=== PATIENT | female | born 1945 | race Caucasian/White ===

== ENCOUNTER 2017-10-19 14:21 | Emergency (ER) | payer OTHER ==
[~2017-10-19] VITALS: Ht 160 cm; Wt 69.6 kg
[2017-10-19 14:26] VITALS: TEMP 36.7; Ht 160 cm; Wt 69.6 kg
--- NOTE | 2017-10-19 15:17 | EMERGENCY ROOM VISIT NOTE ---
History First contact with patient: 15:09 Chief Complaint: ABDOMINAL PAIN Stated Complaint: PRESSURE IN CHEST - GAS Nursing Triage Summary: pt reports upper abd pain , lots of gas , took zantac yesterday and this am helping with gas has lots of pressure pain radiates around to back. denies any d/c/n/v History of Present Illness The patient is a 72 year old female who presents to the Emergency Room with complaints of chest pressure below the breast bone. She did go to acute care this morning and was directed here for further eval. The symptoms started 1 month ago (thought maybe she pulled a muscle when she was shovelling). This has gotten progressively worse. Denies chest pain or shortness of breath. She reports that her chest pressure radiates to the back as well. The pressure is somewhat constant but varies in intensity. 2/10 at its worse. She normally does sit ups and recently it has been more uncomfortable to do the exercises. She took zantac last night and this morning that she thought helped her symptoms. She does have a bloating sensation. 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 Review of Systems See above for pertinent positives & negatives. A total of 10 systems reviewed and were otherwise negative. Past Medical/Surgical History Medical Problems: (1) Arthritis of left knee Family History Patient reports no known family medical history. Social History Smoking Status: Never Smoker Alcohol Use: none Drug Use: none Marital Status: single Housing Status: lives alone Occupation Status: retired Current/Historical Medications Scheduled Omeprazole (Prilosec), 20 MG PO DAILY Ranitidine Hcl (Zantac 150 Maximum Streng), 1 TAB PO BID Scheduled PRN Ranitidine (Zantac), 1 TAB PO DAILY PRN for ACID REFLUX Physical Exam Vital Signs Date Time Temp Pulse Resp B/P (MAP) Pulse Ox O2 Delivery O2 Flow Rate FiO2 10/19/17 17:39 73 22 143/76 97 10/19/17 17:01 143/76 10/19/17 17:00 70 15 97 Room Air 10/19/17 16:32 67 10/19/17 16:31 132/59 10/19/17 16:30 68 13 97 Room Air 10/19/17 16:01 136/72 10/19/17 16:00 86 15 10/19/17 15:58 69 12 136/72 98 Room Air 10/19/17 14:26 36.7 83 18 162/82 99 Room Air Physical Exam GENERAL: Patient is awake alert in no acute distress patient is resting comfortably and showing no signs of anxiety EYES: The conjunctivae are clear. The pupils are round and reactive. EARS, NOSE, MOUTH AND THROAT: The nose is without any evidence of any deformity. Mucous membranes are moist tongue is midline NECK: The neck is nontender and supple. RESPIRATORY: Normal respiratory effort is noted there is no evidence of wheezing rhonchi or rales CARDIOVASCULAR: Regular rate and rhythm noted there no murmurs rubs or gallops normal S1 normal S2. No chest wall tenderness GASTROINTESTINAL: The abdomen is soft. Bowel sounds are present in all quadrants. Abdomen is nontender BACK: No midline tenderness. normal ROM. No CVA tenderness. MUSCULOSKELETAL/EXTREMITIES: There is no evidence of gross deformity full range of motion is noted in the hips and shoulders SKIN: There is no obvious evidence of any rash. There are no petechiae, pallor or cyanosis noted. NEUROLOGIC: Patient is awake alert and oriented x3 Medical Decision & Procedures Laboratory Results 10/19/17 15:58 Red Blood Count 4.79, Mean Corpuscular Volume 86.0, Mean Corpuscular Hemoglobin 28.6, Mean Corpuscular Hemoglobin Concent 33.3, Mean Platelet Volume 10.2, Neutrophils (%) (Auto) 60.3, Lymphocytes (%) (Auto) 29.2, Monocytes (%) (Auto) 7.5, Eosinophils (%) (Auto) 1.9, Basophils (%) (Auto) 0.9, Neutrophils # (Auto) 3.53, Lymphocytes # (Auto) 1.71, Monocytes # (Auto) 0.44, Eosinophils # (Auto) 0.11, Basophils # (Auto) 0.05 10/19/17 15:58 Test 10/19/17 15:58 White Blood Count 5.85 K/uL (4.8-10.8) Red Blood Count 4.79 M/uL (4.2-5.4) Hemoglobin 13.7 g/dL (12.0-16.0) Hematocrit 41.2 % (37-47) Mean Corpuscular Volume 86.0 fL (80-100) Mean Corpuscular Hemoglobin 28.6 pg (25-34) Mean Corpuscular Hemoglobin Concent 33.3 g/dl (32-36) Platelet Count 242 K/uL (130-400) Mean Platelet Volume 10.2 fL (7.4-10.4) Neutrophils (%) (Auto) 60.3 % Lymphocytes (%) (Auto) 29.2 % Monocytes (%) (Auto) 7.5 % Eosinophils (%) (Auto) 1.9 % Basophils (%) (Auto) 0.9 % Neutrophils # (Auto) 3.53 K/uL (1.4-6.5) Lymphocytes # (Auto) 1.71 K/uL (1.2-3.4) Monocytes # (Auto) 0.44 K/uL (0.11-0.59) Eosinophils # (Auto) 0.11 K/uL (0-0.5) Basophils # (Auto) 0.05 K/uL (0-0.2) RDW Standard Deviation 44.5 fL (36.4-46.3) RDW Coefficient of Variation 14.1 % (11.5-14.5) Immature Granulocyte % (Auto) 0.2 % Immature Granulocyte # (Auto) 0.01 K/uL (0.00-0.02) Anion Gap 7.0 mmol/L (3-11) Est Creatinine Clear Calc Drug Dose 56.1 ml/min Estimated GFR () 78.8 Estimated GFR (Non- 68.0 BUN/Creatinine Ratio 22.1 (10-20) Calcium Level 9.3 mg/dl (8.5-10.1) Total Bilirubin 0.3 mg/dl (0.2-1) Aspartate Amino Transf (AST/SGOT) 22 U/L (15-37) Alanine Aminotransferase (ALT/SGPT) 33 U/L (12-78) Alkaline Phosphatase 90 U/L (45-117) Troponin I < 0.015 ng/ml (0-0.045) Total Protein 8.0 gm/dl (6.4-8.2) Albumin 4.0 gm/dl (3.4-5.0) Globulin 4.0 gm/dl (2.5-4.0) Albumin/Globulin Ratio 1.0 (0.9-2) Lipase 79 U/L (73-393) ED Course 15:15 Patient was evaluated in C10 15:30 Blood work and imaging ordered 16:40 Patient was reassessed and informed of all results. Discharge plans discussed. Medical Decision This is a a 72 y/o F who presents 1 month history of progressively worsening chest pressure. Differentials include ACS, PE, Pneumonia, Viral illness, GERD, Anxiety, biliary pathologies etc. She had a CBC, CMP, troponin that were unremarkable. There was no evidence of any infection, cardiac ischemia, kidney disease etc. EKG was normal. Chest X-ray was normal. Her symptoms might be explained by acid reflux as she has had some relief from Zantac. She was prescribed Zantac and Prilosec and advised to follow up with her PCP. She was advised to return if her symptoms worsened or if she had any chest pain / shortness of breath. Impression Primary Impression: Chest pressure Additional Impression: Acid reflux Departure Information Prescriptions Omeprazole (PRILOSEC) 20 Mg Capcr 20 MG PO DAILY for 30 Days, #30 CAP Prov: Grazyna Bowers MD 10/19/17 Ranitidine Hcl (ZANTAC 150 MAXIMUM STRENG) 150 Mg Tab 1 TAB PO BID for 15 Days, #30 TAB 2 Refills Prov: Grazyna Bowers MD 10/19/17 Referrals Nora Granados M.D. (PCP) Patient Instructions [facility] Problem Qualifiers
--- NOTE | 2017-10-19 15:46 | DIAGNOSTIC IMAGING REPORT ---
CHEST ONE VIEW PORTABLE CLINICAL HISTORY: 72 years-old Female presenting with chest pressure. TECHNIQUE: Portable upright AP view of the chest was obtained. COMPARISON: None. FINDINGS: Cardiomediastinal silhouette normal. Lungs and pleural spaces clear. Degenerative changes of the thoracic spine. Upper abdomen normal. IMPRESSION: 1. No acute cardiopulmonary disease. Electronically signed by: Calos Montague M.D. 10/19/2017 3:44 PM Dictated Date/Time: 10/19/2017 3:43 PM
[2017-10-19 16:18] LABS: BASO % 0.9 %; BASO ABS # 0.05 K/uL (0-0.2); EOS % 1.9 %; EOS ABS # 0.11 K/uL (0-0.5); HEMATOCRIT 41.2 % (37-47); HEMOGLOBIN 13.7 g/dL (12.0-16.0); IG# 0.01 K/uL (0.00-0.02); LYMPH % 29.2 %; LYMPH ABS # 1.71 K/uL (1.2-3.4); MEAN CORPUSCULAR HEMOGLOBIN 28.6 pg (25-34); MEAN CORPUSCULAR HGB CONC 33.3 g/dl (32-36); MEAN PLATELET VOLUME 10.2 fL (7.4-10.4); MONO % 7.5 %; MONO ABS # 0.44 K/uL (0.11-0.59); NEUT % 60.3 %; NEUT ABS # 3.53 K/uL (1.4-6.5); PLATELET COUNT 242 K/uL (130-400); RED CELL DISTRIBUTION WIDTH CV 14.1 % (11.5-14.5); RED CELL DISTRIBUTION WIDTH SD 44.5 fL (36.4-46.3); WHITE BLOOD COUNT 5.85 K/uL (4.8-10.8)
[2017-10-19 16:38] LABS: ALT/SGPT 33 U/L (12-78); BLOOD UREA NITROGEN 19 mg/dl (7-18); CALCIUM 9.3 mg/dl (8.5-10.1); CARBON DIOXIDE 28 mmol/L (21-32); CREATININE 0.86 mg/dl (0.60-1.20); GLUCOSE 94 mg/dl (70-99); LIPASE 79 U/L (73-393); POTASSIUM 3.5 mmol/L (3.5-5.1); SODIUM 139 mmol/L (136-145)
[2017-10-19 16:42] LABS: ALKALINE PHOSPHATASE 90 U/L (45-117); AST/SGOT 22 U/L (15-37)
--- NOTE | 2017-10-19 16:54 | EMERGENCY ROOM VISIT NOTE ---
History Report prepared by Daphnie: Sherlyn Waters Under the Supervision of: Dr. Abe Redd M.D. First contact with patient: 15:07 Chief Complaint: ABDOMINAL PAIN Stated Complaint: PRESSURE IN CHEST - GAS Nursing Triage Summary: pt reports upper abd pain , lots of gas , took zantac yesterday and this am helping with gas has lots of pressure pain radiates around to back. denies any d/c/n/v History of Present Illness The patient is a 72 year old female who presents to the Emergency Room with complaints of persistent low chest pressure for one month. She states the pain has been radiating to her back. She states that she is normally able to do sit- ups and she has hardly been able to do them. She states that she is normally active. She notes the pain has worsened and is waxes and wanes. She denies any shortness of breath or chest pain. She denies any recent travels or trauma. She has taken Zantac, which provided some mild relief. She states that exercise or exertion does not worsen her symptoms. She was seen at an acute care clinic this morning and was advised to come to the ED. She has a family history of CAD and stroke. Source of History: patient Onset: one month Position: chest (low) Quality: pressure Timing: waxes/wanes, other (persistent) Modifying Factors (Relieving): other (Zantac) Associated Symptoms: No chest pain, No SOB Note: She notes chest pressure, though no pain. She denies any recent travels or trauma. Review of Systems See HPI for pertinent positives & negatives. A total of 10 systems reviewed and were otherwise negative. Past Medical & Surgical Medical Problems: (1) Arthritis of left knee Family History FH: heart disease Stroke Social History Smoking Status: Never Smoker Smokeless Tobacco Use: No Alcohol Use: none Drug Use: none Marital Status: Housing Status: lives with family Occupation Status: retired Current/Historical Medications Scheduled Omeprazole (Prilosec), 20 MG PO DAILY Ranitidine Hcl (Zantac 150 Maximum Streng), 1 TAB PO BID Scheduled PRN Ranitidine (Zantac), 1 TAB PO DAILY PRN for ACID REFLUX Allergies Coded Allergies: No Known Allergies (Unverified , 02/24/14) Physical Exam Vital Signs Date Time Temp Pulse Resp B/P (MAP) Pulse Ox O2 Delivery O2 Flow Rate FiO2 10/19/17 17:39 73 22 143/76 97 10/19/17 17:01 143/76 10/19/17 17:00 70 15 97 Room Air 10/19/17 16:32 67 10/19/17 16:31 132/59 10/19/17 16:30 68 13 97 Room Air 10/19/17 16:01 136/72 10/19/17 16:00 86 15 10/19/17 15:58 69 12 136/72 98 Room Air 10/19/17 14:26 36.7 83 18 162/82 99 Room Air Physical Exam GENERAL: Patient is in no acute distress. HEENT: No acute trauma, normocephalic atraumatic, mucous membranes moist, no nasal congestion, no scleral icterus. NECK: No stridor, no adenopathy, no meningismus, trachea is midline. LUNGS: Clear to auscultation bilaterally, no wheeze, no rhonchi, breath sounds equal. HEART: Without murmurs gallops or rubs, regular rate and rhythm. ABDOMEN: Soft, nontender, bowel sounds positive, no hernias, no peritonitis. EXTREMITIES: No cyanosis or edema, full range of motion of all the joints without pain or difficulty, no signs for acute trauma. NEUROLOGIC: Oriented x 3, no acute motor or sensory deficits, no focal weakness. SKIN: No rash, no jaundice, no diaphoresis. Medical Decision & Procedures ER Provider Diagnostic Interpretation: Radiology results as stated below per my review and radiologist interpretation: CHEST ONE VIEW PORTABLE CLINICAL HISTORY: 72 years-old Female presenting with chest pressure. TECHNIQUE: Portable upright AP view of the chest was obtained. COMPARISON: None. FINDINGS: Cardiomediastinal silhouette normal. Lungs and pleural spaces clear. Degenerative changes of the thoracic spine. Upper abdomen normal. IMPRESSION: 1. No acute cardiopulmonary disease. Electronically signed by: Calos Montague M.D. 10/19/2017 3:44 PM Dictated Date/Time: 10/19/2017 3:43 PM Laboratory Results 10/19/17 15:58 Red Blood Count 4.79, Mean Corpuscular Volume 86.0, Mean Corpuscular Hemoglobin 28.6, Mean Corpuscular Hemoglobin Concent 33.3, Mean Platelet Volume 10.2, Neutrophils (%) (Auto) 60.3, Lymphocytes (%) (Auto) 29.2, Monocytes (%) (Auto) 7.5, Eosinophils (%) (Auto) 1.9, Basophils (%) (Auto) 0.9, Neutrophils # (Auto) 3.53, Lymphocytes # (Auto) 1.71, Monocytes # (Auto) 0.44, Eosinophils # (Auto) 0.11, Basophils # (Auto) 0.05 10/19/17 15:58 Test 10/19/17 15:58 White Blood Count 5.85 K/uL (4.8-10.8) Red Blood Count 4.79 M/uL (4.2-5.4) Hemoglobin 13.7 g/dL (12.0-16.0) Hematocrit 41.2 % (37-47) Mean Corpuscular Volume 86.0 fL (80-100) Mean Corpuscular Hemoglobin 28.6 pg (25-34) Mean Corpuscular Hemoglobin Concent 33.3 g/dl (32-36) Platelet Count 242 K/uL (130-400) Mean Platelet Volume 10.2 fL (7.4-10.4) Neutrophils (%) (Auto) 60.3 % Lymphocytes (%) (Auto) 29.2 % Monocytes (%) (Auto) 7.5 % Eosinophils (%) (Auto) 1.9 % Basophils (%) (Auto) 0.9 % Neutrophils # (Auto) 3.53 K/uL (1.4-6.5) Lymphocytes # (Auto) 1.71 K/uL (1.2-3.4) Monocytes # (Auto) 0.44 K/uL (0.11-0.59) Eosinophils # (Auto) 0.11 K/uL (0-0.5) Basophils # (Auto) 0.05 K/uL (0-0.2) RDW Standard Deviation 44.5 fL (36.4-46.3) RDW Coefficient of Variation 14.1 % (11.5-14.5) Immature Granulocyte % (Auto) 0.2 % Immature Granulocyte # (Auto) 0.01 K/uL (0.00-0.02) Anion Gap 7.0 mmol/L (3-11) Est Creatinine Clear Calc Drug Dose 56.1 ml/min Estimated GFR () 78.8 Estimated GFR (Non- 68.0 BUN/Creatinine Ratio 22.1 (10-20) Calcium Level 9.3 mg/dl (8.5-10.1) Total Bilirubin 0.3 mg/dl (0.2-1) Aspartate Amino Transf (AST/SGOT) 22 U/L (15-37) Alanine Aminotransferase (ALT/SGPT) 33 U/L (12-78) Alkaline Phosphatase 90 U/L (45-117) Troponin I < 0.015 ng/ml (0-0.045) Total Protein 8.0 gm/dl (6.4-8.2) Albumin 4.0 gm/dl (3.4-5.0) Globulin 4.0 gm/dl (2.5-4.0) Albumin/Globulin Ratio 1.0 (0.9-2) Lipase 79 U/L (73-393) Laboratory results reviewed by me. ECG Per My Interpretation Indication: chest pain Rate (beats per minute): 73 Rhythm: normal sinus Findings: no ectopy (No PVCs ), other (No ST elevation) Change: Patient's electrocardiogram interpreted by me. ED Course 1534: The patient was evaluated in room C10. A complete history and physical exam was performed. 1645: Dr. Bowers, resident reassessed the patient at this time. She is feeling better and resting comfortably. I discussed the results and treatment plan with the patient. I answered all pertaining questions that she had. She expressed understanding and verbalized agreement. The patient will be discharged home. Medical Decision The patient is a 72 year old female who presents to the ED with complaints of chest pressure. Differential diagnoses considered include reflux, gastritis, pancreatitis, biliary colic, cardiac ischemia, anemia, angina, aortic dissection , and PE. There is no leukocytosis or concerning anemia. No significant electrolyte abnormally, kidney failure, hepatitis or pancreatitis. EKG shows a normal sinus rhythm, no acute ischemia. Cardiac enzyme testing times one is not consistent with acute cardiac injury. Chest x-ray shows no mediastinal widening , pneumonia or pneumothorax. The patient presents with a month of lower chest pain/epigastric abdominal pain. The pain is not exertional. No associated symptoms. She has had some relief with Zantac. The patient's cardiac workup is benign. She was reassured. She will be starting on some Zantac and Prilosec to see if this helps her symptoms. Family doctor follow-up was suggested. If her pain becomes worse, if she is short of breath or has any exertional symptoms, she needs to return for reassessment. Medication Reconcilliation Current Medication List: was personally reviewed by me Blood Pressure Screening Patient's blood pressure: Elevated blood pressure Blood pressure disposition: Referred to PCP Impression Primary Impression: Precordial chest pain Scribe Attestation The scribe's documentation has been prepared under my direction and personally reviewed by me in its entirety. I confirm that the note above accurately reflects all work, treatment, procedures, and medical decision making performed by me. Departure Information Dispostion Home / Self-Care Prescriptions Omeprazole (PRILOSEC) 20 Mg Capcr 20 MG PO DAILY for 30 Days, #30 CAP Prov: Grazyna Bowers MD 10/19/17 Ranitidine Hcl (ZANTAC 150 MAXIMUM STRENG) 150 Mg Tab 1 TAB PO BID for 15 Days, #30 TAB 2 Refills Prov: Grazyna Bowers MD 10/19/17 Referrals Nora Granados M.D. (PCP) Forms Call Back Authorization, HOME CARE DOCUMENTATION FORM, IMPORTANT VISIT INFORMATION Patient Instructions My [facility] Additional Instructions You were seen in the ED for a 1 month history of chest pressure. Evaluation of your heart did not reveal any abnormalities currently. It is possible that your symptoms are from acid reflux. Please take the medications as prescribed. If you experience any shortness of breath or chest pain at rest or with exertion or any other symptoms, please come back to the ER.
[2017-10-19] MEDS ORDERED: RANI150T85 PO (17:00)
[2017-10-19] MEDS ORDERED: RANITAB6 PO (17:07)
[2017-10-19] MEDS ORDERED: PRLSR20 PO (17:07)
[2017-10-19 17:39] VITALS: BP 143/76; PULSE 73; O2SAT 97
== END 2017-10-19 17:37 | disposition home or self-care (01) ==
LOC: C.EDB 14:23 → C.EDC 17:37
DX: R07.9 Chest pain, unspecified (principal); K21.9 Gastro-esophageal reflux disease without esophagitis; R10.9 Unspecified abdominal pain